=== PATIENT | female | born 1995 | race Caucasian/White ===

== ENCOUNTER → 2018-01-29 | Outpatient (REF) | payer OTHER ==
[~2018-01-29] MED LIST: CETI-176 PO; ONDA8TAB98 PO; OXYC-869 PO
[2018-01-29 11:27] LABS: PLATELET COUNT, AUTOMATED 398 K/uL (150-450)
== END ==
PROVIDERS: ATTEND Nurse Practitioner Family
DX: R11.10 Vomiting, unspecified (principal)
CPT/HCPCS: 82040; 82247; 82310; 82374; 82435; 82565; 82947; 84075; 84132; 84155; 84295; 84450; 84460; 84520; 85025

== ENCOUNTER → 2018-09-16 | Outpatient (CLI) | payer OTHER ==
[~2018-09-16] MED LIST changes: +SINCALIDE 5 MCG VIAL INJ ONE
--- NOTE | 2018-09-16 13:54 | RADIOLOGY IMAGING REPORT ---
FAC[place] [facility] [place] NAME: Anyi Pearce : 1995 MR: [id number] V: [id number] EXAM DATE: ORDERING PHYSICIAN: KAREN RODRIGUEZ TECHNOLOGIST: Location: [facility] [place] Patient: Anyi Pearce : 1995 Visit/Account:[id number] Date of Sevice: 09/16/2018 EXAMINATION: Right Upper Quadrant Abdominal Ultrasound with Kinevac: 09/16/2018 9:00 AM HISTORY: Right upper quadrant pain. Nausea. Diarrhea. COMPARISON STUDIES: Renal stone CT 05/24/2015 FINDINGS: Gallbladder: no stones or sludge. Kinevac: 2.95 mcg Gallbladder volumes: 11.3 mL pre-, 9.7 mL post Gallbladder ejection fraction: 14%. Patient did report symptoms during gallbladder emptying. Liver: Negative Common duct: 3 mm Pancreas: negative Right kidney: Negative Upper abdominal aorta and IVC: negative Ascites: none IMPRESSION: 1. Low gallbladder ejection fraction with symptoms during emptying with an otherwise unremarkable so nographic appearance of the gallbladder and biliary system. Significance of this uncertain but this pattern can be seen with biliary dyskinesia or chronic cholecystitis. 2. Otherwise unremarkable study. Report Dictated By: Ritesh Deleon MD at 09/16/2018 1:43 PM Report E-Signed By: Ritesh Deloen MD at 09/16/2018 1:48 PM WSN:[email or web address]
== END ==
LOC: US 00:29
PROVIDERS: ATTEND Nurse Practitioner Family
DX: R93.2 Abnormal findings on diagnostic imaging of liver and biliary tract (principal)
CPT/HCPCS: 76705; J2805